=== PATIENT | male | born 1965 | race Caucasian/White ===

== ENCOUNTER 2022-07-23 12:12 | Emergency (ER) | payer BC ==
[2022-07-23 12:22] VITALS: TEMP 98.3; BMI 26.6
[2022-07-23] MEDS ORDERED: ACETAMINOPHEN 325 MG TABLET (FP) PO ONE (14:07)
[2022-07-23] MEDS ORDERED: ACETAMINOPHEN 325 MG TABLET (FP) ONE (14:12)
[2022-07-23 15:21] LABS: BASO % 0.5 % (0-2.0); EOS % 0.2 % (0-4.5); HEMATOCRIT 42.1 % (35.4-49); HEMOGLOBIN 14.3 GM/dL (11.7-16.9); LYMPH % 15.4 % (8-40); MCH 30.1 pg (25.7-33.7); MCHC 33.8 g/dl (32.0-35.9); MEAN CELL VOLUME 88.9 fl (80-96); MEAN PLT VOLUME 8.2 fl (7.5-11.1); MONO % 8.7 % (3.8-10.2); NEUT % 75.2 % (42.8-82.8); PLATELET COUNT 294 10^3/uL (134-434); RBC 4.74 M/mm3 (4.00-5.60); RDW 13.6 % (11.9-15.9); WHITE BLOOD COUNT 8.7 K/mm3 (4.0-10.0)
[2022-07-23 15:29] LABS: INR 1.03 (0.83-1.09); PROTHROMBIN TIME (PATIENT) 11.9 SEC (9.7-13.0)
[2022-07-23 15:37] LABS: CALCIUM 9.3 mg/dL (8.5-10.1)
[2022-07-23 15:38] LABS: ALBUMIN 4.1 g/dl (3.4-5.0); BLOOD UREA NITROGEN 15.6 mg/dL (7-18)
[2022-07-23 15:41] LABS: BILIRUBIN,TOTAL 0.8 mg/dL (0.2-1); CREATININE 1.4 mg/dL (0.55-1.3); TOT PROT 7.8 g/dl (6.4-8.2)
[2022-07-23 18:29] VITALS: BP 118/72; PULSE 81; RESP 18
== END 2022-07-23 18:29 | disposition home or self-care (01) ==
LOC: JER 12:12
DX: M79.89 Other specified soft tissue disorders (principal)
CPT/HCPCS: 0241U-QW; 36415; 80053; 85025; 85610; 85730; 93005; 93010; 93971-TC; 99285-25